=== PATIENT | female | born 1955 | race American Indian/Alaskan Native ===

== ENCOUNTER 2019-09-13 13:39 | Emergency (ER) | payer SELFPAY ==
--- NOTE | 2019-09-13 14:34 | Cat Scan Report ---
CT HEAD WITHOUT CONTRAST INDICATION / CLINICAL INFORMATION: neuro deficits <6hrs or sx present upon awakening. TECHNIQUE: All CT scans at this location are performed using CT dose reduction for ALARA by means of automated e xposure control. COMPARISON: None available. FINDINGS: HEMORRHAGE: No evidence of intracranial hemorrhage or extra-axial fluid collection. EXTRA-AXIAL SPACES: Cortical sulci, sylvian fissures and basilar cisterns have an unremarkable appear ance. VENTRICULAR SYSTEM: The ventricular system is of normal size and configuration. CEREBRAL PARENCHYMA: Fairly extensive periventricular, deep white matter and subcortical white matter hypodensities noted consistent with advanced microvascular ischemic change greater than expected for age 64 years. Are there risk factors such as hypertension, diabetes, cigarette smoking or renal fail ure A well-circumscribed area of decreased brain parenchymal attenuation is observed in the anterior aspect of the right thalamus measuring about 11 mm in greatest dimension. This represents a small lashawn p infarction which could be subacute or chronic.. MIDLINE SHIFT OR HERNIATION: There is no mass effect. CEREBELLUM / BRAINSTEM: Brainstem and cerebellum have an unremarkable appearance. INTRACRANIAL VESSELS: Calcified atherosclerotic plaque is demonstrated along the course of the cavern ous segments of both internal carotid arteries. Similar findings are seen at the distal vertebral art eries. ORBITS: Operative changes are seen at the left globe. The orbits are incompletely evaluated on this s tudy. SOFT TISSUES of HEAD: No significant abnormality. CALVARIUM: Evaluation of bone windows reveals no abnormalities. PARANASAL SINUSES / MASTOID AIR CELLS: Inflammatory disease is present in the right frontal sinus, an terior and mid right ethmoid air cells and visualized portions of the right maxillary sinus. These fi ndings may indicate sinusitis secondary to air passageways obstruction of the right OM U. Left-sided paranasal sinuses, sphenoid sinuses and mastoid air cells are normally pneumatized. ADDITIONAL FINDINGS: None. IMPRESSION: 1. Prominent periventricular and deep white matter low-density likely secondary to advanced microvasc ular ischemic change. 2. Age-indeterminate (subacute to chronic) small deep infarction right thalamus. "Stroke protocol" Notification: I called report of this study to Dr. Juárez of the emergency department at about 1326 Ce ntral standard time. Signer Name: Lincoln Aragon MD Signed: 09/13/2019 2:30 PM Workstation Name: [id number]
--- NOTE | 2019-09-13 14:37 | Emergency Department Report ---
HPI - General Chief Complaint: Neuro Symptoms/Deficit Time Seen by Provider: 09/13/19 14:01 - HPI HPI: 64-year-old female presents to the emergency department as a code stroke. The patient does not speak much Korean but the daughter is currently at bedside and translating for us. The patient started exhibiting some slurred speech and confusion yesterday. She also had some episodes of diarrhea including 1 in which she soiled herself. However the patient just went to sleep assuming that she would improve. This morning the daughter was called saying that the patient was still having altered speech and "she does not appear to be herself." The pa cy also complained of some midsternal chest pain that has since resolved. She continues to have episodes of diarrhea including another in which she soiled herself. No fever, nausea, vomiting, rash, abdominal pain. The patient does have some generalized weakness but there has been no complaints of any facial droop or lateralizing or focal weakness or deficits. She has a past medical history of diabetes, hypertension and had some recent glaucoma surgery. ED Past Medical Hx - Past Medical History Previous Medical History?: Yes Hx Hypertension: Yes Hx Diabetes: Yes - Surgical History Past Surgical History?: Yes Additional Surgical History: Glaucoma (Left eye) - Social History Smoking Status: Never Smoker Substance Use Type: Alcohol - Medications Home Medications: Home Medications Medication Instructions Recorded Confirmed Last Taken Type Atorvastatin (Nf) [Lipitor (Nf)] 10 mg PO QDAY 09/13/19 09/13/19 Unknown History Atorvastatin (Nf) [Lipitor (Nf)] 10 mg PO QHS 09/13/19 09/13/19 Unknown History Calcitrate + Vit D Caplet QDAY 09/13/19 Unknown History Metformin HCl [metFORMIN] 500 mg PO BID 09/13/19 09/13/19 Unknown History Sitagliptin Phosphate [Januvia] 100 mg PO QDAY 09/13/19 09/13/19 Unknown History amLODIPine [Norvasc] 10 mg PO DAILY 09/13/19 09/13/19 Unknown History lisinopriL [Zestril TAB] 10 mg PO QDAY 09/13/19 09/13/19 Unknown History ED Review of Systems ROS: Stated complaint: CHEST PAIN/POSS STROKE Other details as noted in HPI Comment: All other systems reviewed and negative Constitutional: weakness. denies: fever Eyes: denies: eye pain, vision change ENT: denies: ear pain, throat pain Respiratory: denies: cough, shortness of breath Cardiovascular: chest pain (resolved). denies: palpitations Gastrointestinal: diarrhea. denies: abdominal pain, vomiting Genitourinary: denies: dysuria, discharge Musculoskeletal: denies: back pain, joint swelling Skin: denies: rash, lesions Neurological: weakness. denies: headache, numbness Physical Exam - Physical Exam Vital Signs: Vital Signs 09/13/19 09/13/19 13:41 14:29 Temperature 98.4 F 98.4 F Pulse Rate 104 H 95 H Respiratory 18 18 Rate Blood Pressure 160/84 Blood Pressure 172/82 [Right] O2 Sat by Pulse 99 100 Oximetry ED Course Vital Signs 09/13/19 09/13/19 13:41 14:29 Temperature 98.4 F 98.4 F Pulse Rate 104 H 95 H Respiratory 18 18 Rate Blood Pressure 160/84 Blood Pressure 172/82 [Right] O2 Sat by Pulse 99 100 Oximetry - Consultations Consultation #1: Just after the patient had a CT scan of the head without contrast completed she was seen by the telemedicine neurologist. He agrees with the patient does not appear to be a TPA candidate. At first he recommended a CT angiography of the head and neck. However, the patient has some renal insufficiency and he agrees that the patient does not have a likely large vessel occlusion and that the CT angiography can be skipped but he recommends admission for MRI/MRA. 09/13/19 18:40 ED Medical Decision Making - Lab Data Result diagrams: 09/13/19 14:49 09/13/19 14:49 - EKG Data -: EKG Interpreted by Me EKG shows normal: sinus rhythm, axis (Left axis deviation), intervals (Prolonged QTC), QRS complexes (LVH, intraventricular conduction delay), ST-T waves (There is some ST elevation to the lateral leads secondary to the LVH) Rate: normal - EKG Data When compared to previous EKG there are: previous EKG unavailable Interpretation: other (Sinus rhythm, left axis deviation, prolonged QTC, LVH, nonspecific intraventricular conduction delay, there is some ST elevation to the lateral leads secondary to LVH) - Radiology Data Radiology results: report reviewed, image reviewed interpreted by me: Chest x-ray does not show any acute process. There are no pleural effusions, obvious pneumonia and there is no pneumothorax. Abdominal x-ray shows nonspecific nonobstructive bowel gas CT HEAD WITHOUT CONTRAST INDICATION / CLINICAL INFORMATION: neuro deficits <6hrs or sx present upon awakening. TECHNIQUE: All CT scans at this location are performed using CT dose reduction for ALARA by means of automated exposure control. COMPARISON: None available. FINDINGS: HEMORRHAGE: No evidence of intracranial hemorrhage or extra-axial fluid collection. EXTRA-AXIAL SPACES: Cortical sulci, sylvian fissures and basilar cisterns have an unremarkable appearance. VENTRICULAR SYSTEM: The ventricular system is of normal size and configuration. CEREBRAL PARENCHYMA: Fairly extensive periventricular, deep white matter and subcortical white matter hypodensities noted consistent with advanced microvascular ischemic change greater than expected for age 64 years. Are there risk factors such as hypertension, diabetes, cigarette smoking or renal failure A well-circumscribed area of decreased brain parenchymal attenuation is observed in the anterior aspect of the right thalamus measuring about 11 mm in greatest dimension. This represents a small deep infarction which could be subacute or chronic.. MIDLINE SHIFT OR HERNIATION: There is no mass effect. CEREBELLUM / BRAINSTEM: Brainstem and cerebellum have an unremarkable appearance. INTRACRANIAL VESSELS: Calcified atherosclerotic plaque is demonstrated along the course of the cavernous segments of both internal carotid arteries. Similar findings are seen at the distal vertebral arteries. ORBITS: Operative changes are seen at the left globe. The orbits are incompletely evaluated on this study. SOFT TISSUES of HEAD: No significant abnormality. CALVARIUM: Evaluation of bone windows reveals no abnormalities. PARANASAL SINUSES / MASTOID AIR CELLS: Inflammatory disease is present in the right frontal sinus, anterior and mid right ethmoid air cells and visualized portions of the right maxillary sinus. These findings may indicate sinusitis secondary to air passageways obstruction of the right OM U. Left-sided paranasal sinuses, sphenoid sinuses and mastoid air cells are normally pneumatized. ADDITIONAL FINDINGS: None. IMPRESSION: 1. Prominent periventricular and deep white matter low-density likely secondary to advanced microvascular ischemic change. 2. Age- indeterminate (subacute to chronic) small deep infarction right thalamus. - Medical Decision Making This patient presents with a 24-hour period of some altered speech, confusion, generalized weakness. She presented as a code stroke. CT scan of the head showed what appears to be a subacute infarct but no acute infarct, bleed, or any other acute process. Patient's labs have been mostly unremarkable except for renal insufficiency with a GFR of 38. Patient was seen by the telemedicine neurologist who agrees that she is not a TPA candidate but does recommend admission for MRI/MRA and further stroke work-up. Patient was given a dose of hydralazine for her blood pressure and an aspirin after the CT scan results. This patient has been presented to the admitting hospitalist, Dr. Mckay, for either admission or further disposition. - Differential Diagnosis CVA, TIA, dysrhythmia, hypoglycemia Critical Care Time: No Critical care attestation.: If time is entered above; I have spent that time in minutes in the direct care of this critically ill patient, excluding procedure time. ED Disposition Clinical Impression: Stroke-like symptoms, GOPAL (acute kidney injury) Hypertension Qualifiers: Hypertension type: essential hypertension Qualified Code(s): I10 - Essential (primary) hypertension Disposition: -09 OP ADMIT IP TO THIS HOSP Is pt being admited?: Yes Condition: Fair Instructions: Hypertension (ED) Time of Disposition: 18:42
[2019-09-13 15:06] LABS: Basophils # (Auto) 0.1 K/mm3 (0.0-0.1); Basophils % (Auto) 0.8 % (0.0-1.8); Eosinophils # (Auto) 0.1 K/mm3 (0.0-0.4); Eosinophils % (Auto) 1.1 % (0.0-4.3); Hematocrit 33.7 % (30.3-42.9); Hemoglobin 11.1 gm/dl (10.1-14.3); Lymphocytes # (Auto) 1.6 K/mm3 (1.2-5.4); Lymphocytes % (Auto) 21.8 % (13.4-35.0); Mean Corpuscular HGB Conc 33 % (30-34); Mean Corpuscular Volume 83 fl (79-97); Monocytes # (Auto) 0.7 K/mm3 (0.0-0.8); Monocytes % (Auto) 9.5 % (0.0-7.3); Platelet Count 356 K/mm3 (140-440); Red Blood Count 4.06 M/mm3 (3.65-5.03)
[2019-09-13 15:16] LABS: INR 1.05 (0.87-1.13)
[2019-09-13 15:17] LABS: Partial Thromboplastin Time 33.1 Sec. (24.2-36.6)
[2019-09-13 15:25] LABS: BUN/Creatinine Ratio 12; Blood Urea Nitrogen 17 mg/dL (7-17); Hemolysis Index 4
[2019-09-13 15:29] LABS: Alanine Aminotransferase 9 units/L (7-56); Albumin 3.5 g/dL (3.9-5)
--- NOTE | 2019-09-13 15:33 | XRay Report ---
Complete abdominal series. HISTORY: Chest pain. Diarrhea. Chest one view: Heart size is mildly enlarged. Negative for edema, effusion or infiltrate. Two-view abdomen: Gas is scattered throughout the abdomen in a nonobstructive fashion. Negative for f ree air or suspicious calcification. Signer Name: Jose Elliott MD Signed: 09/13/2019 3:28 PM Workstation Name: [id number]
[2019-09-13 15:39] LABS: Bilirubin,Direct < 0.2 mg/dL (0-0.2)
[2019-09-13] MEDS ORDERED: ASPIRIN 81 MG TAB CHEW PO ONE (15:56)
[2019-09-13] MEDS ORDERED: hydrALAZINE 20 MG/1 ML INJ IV ONE (15:56)
[2019-09-13 16:29] VITALS: BP 148/82
[2019-09-13] MEDS ORDERED: SODIUM CHLORIDE 0.9% 1000 ML 1,000 ML IV ONE (17:30)
[2019-09-13 18:27] LABS: Chol/HDL Ratio 4.17 %
[2019-09-13 18:37] LABS: Free T4 (Free Thyroxine) 1.14 ng/dL (0.76-1.46)
--- NOTE | 2019-09-13 18:54 | Event Note ---
64-year-old female with HTN, DM, malnutrition presents to ED for evaluation. A code stroke was called. Patient initiated on stroke protocol. Patient seen and evaluated in the ED. Patient does not exhibit any neurologic deficit. Upon further interview patient reports that she presents to [facility] for evaluation at the insistence of her daughter. Patient states that she "feels fine", but her daughter insisted that she come in and get checked out. Patient denies fever, chills, chest pain, palpitations, productive cough, unintentional weight loss, recent ill contacts. Patient denies focal neurologic deficit. Patient acknowledges decreased oral intake and generalized weakness. CT scan of the head is reviewed and does not reveal any acute findings. Patient found to have accelerated hypertension. Patient instructed to continue prehospital antihypertensive and antihyperglycemic medication. Patient also instructed to take aspirin daily. Patient medically optimized and back to usual state of health. Patient does not meet admission criteria at this time. Patient subsequently discharged home and instructed to follow-up with primary care physician within 3 to 5 days, and to follow-up with neurology for further care and evaluation within 3 to 5 days. - General Limitations: No Limitations General appearance: alert, in no apparent distress - Head Head exam: Present: atraumatic, normocephalic - Eye Eye exam: Present: normal appearance - ENT ENT exam: Present: mucous membranes moist - Respiratory Respiratory exam: Present: normal lung sounds bilaterally. Absent: respiratory distress, wheezes, rales, rhonchi, stridor, chest wall tenderness, accessory muscle use, decreased breath sounds, prolonged expiratory - Cardiovascular Cardiovascular Exam: Present: regular rate, normal rhythm, normal heart sounds. Absent: systolic murmur, diastolic murmur, rubs, gallop - GI/Abdominal GI/Abdominal exam: Present: soft, normal bowel sounds. Absent: distended, tenderness, rebound, rigid - Back Exam Back exam: Present: normal inspection, full ROM, CVA tenderness (R) (mild), CVA tenderness (L) (mild). Absent: paraspinal tenderness, vertebral tenderness - Neurological Exam Neurological exam: Present: alert, oriented X3, CN II-XII intact, normal gait. Absent: motor sensory deficit - Psychiatric Psychiatric exam: Present: normal affect, normal mood - Skin Skin exam: Present: warm, dry, intact
== END 2019-09-13 21:36 | disposition admitted as inpatient to this hospital (09) ==
LOC: ED 13:39
DX: N17.9 Acute kidney failure, unspecified (principal); R07.9 Chest pain, unspecified; R47.81 Slurred speech; R41.0 Disorientation, unspecified; R19.7 Diarrhea, unspecified; R53.1 Weakness; I10 Essential (primary) hypertension; E11.9 Type 2 diabetes mellitus without complications; Z98.890 Other specified postprocedural states; Z79.899 Other long term (current) drug therapy
CPT/HCPCS: 36415; 70450; 74022; 80048; 80061; 80076; 82962; 84439; 84443; 84484; 85025; 85610; 85670; 85730; 87040; 93005; 93010; 96361; 96374; 99285; J0360

== ENCOUNTER 2020-01-08 22:03 | Observation (INO) | payer OTHER ==
[2020-01-08 23:07] LABS: Hematocrit 28.1 % (30.3-42.9); Hemoglobin 9.1 gm/dl (10.1-14.3); Mean Corpuscular HGB Conc 33 % (30-34); Mean Corpuscular Volume 83 fl (79-97); Platelet Count 263 K/mm3 (140-440); Red Blood Count 3.38 M/mm3 (3.65-5.03); Red Cell Distribution Width 16.1 % (13.2-15.2)
[2020-01-08 23:28] LABS: Albumin 3.5 g/dL (3.9-5); Calcium 8.6 mg/dL (8.4-10.2)
--- NOTE | 2020-01-09 01:03 | Emergency Department Report ---
ED General Adult HPI - General Chief complaint: Extremity Injury, Lower Stated complaint: SWELLING IN RT AND LEFT FEET Time Seen by Provider: 01/09/20 00:57 Source: family Mode of arrival: Wheelchair Limitations: No Limitations - History of Present Illness Initial comments: Patient is a 64-year-old female that presents emergency room with lower extremit y swelling. Patient states the pain is a 2 out of 10. Pain states is a pressure and fullness feeling. Patient states that the swelling is better with elevation and worse with the legs being bent or down. Patient states that her symptoms started today. Patient denies fever. Patient denies chills. Patient denies redness to her legs. Patient states she is compliant about having a clot in her legs. Patient states that the swelling is on both sides. Patient has a past medical history hypertension diabetes. Patient denies a past medical history of CHF. Patient states she is on amlodipine for blood pressure. -: Sudden Location: lower extremity Severity scale (0 -10): 2 Quality: aching Consistency: constant Improves with: rest, other (Elevation) Worsens with: movement Associated Symptoms: denies: confusion, chest pain, cough, diaphoresis, fever/chills, headaches, loss of appetite, malaise, nausea/vomiting, rash, seizure, shortness of breath, syncope, weakness Treatments Prior to Arrival: none - Related Data Home Medications Medication Instructions Recorded Confirmed Last Taken Atorvastatin (Nf) [Lipitor (Nf)] 10 mg PO QDAY 09/13/19 09/13/19 Unknown Atorvastatin (Nf) [Lipitor (Nf)] 10 mg PO QHS 09/13/19 09/13/19 Unknown Calcitrate + Vit D Caplet QDAY 09/13/19 Unknown Metformin HCl [metFORMIN] 500 mg PO BID 09/13/19 09/13/19 Unknown Sitagliptin Phosphate [Januvia] 100 mg PO QDAY 09/13/19 09/13/19 Unknown amLODIPine [Norvasc] 10 mg PO DAILY 09/13/19 09/13/19 Unknown lisinopriL [Zestril TAB] 10 mg PO QDAY 09/13/19 09/13/19 Unknown Previous Rx's Medication Instructions Recorded Last Taken Type Aspirin [Aspirin BABY CHEW TAB] 81 mg PO QDAY #30 tab.chew 09/13/19 Unknown Rx Allergies Allergy/AdvReac Type Severity Reaction Status Date / Time No Known Allergies Allergy Verified 09/13/19 13:45 ED Review of Systems ROS: Stated complaint: SWELLING IN RT AND LEFT FEET Other details as noted in HPI Constitutional: denies: chills, fever Eyes: denies: eye pain, eye discharge, vision change ENT: denies: ear pain, throat pain Respiratory: denies: cough, shortness of breath, wheezing Cardiovascular: edema. denies: chest pain, palpitations Endocrine: no symptoms reported Gastrointestinal: denies: abdominal pain, nausea, diarrhea Genitourinary: denies: urgency, dysuria, discharge Musculoskeletal: denies: back pain, joint swelling, arthralgia Skin: denies: rash, lesions Neurological: denies: headache, weakness, paresthesias Psychiatric: denies: anxiety, depression Hematological/Lymphatic: denies: easy bleeding, easy bruising ED Past Medical Hx - Past Medical History Previous Medical History?: Yes Hx Hypertension: Yes Hx CVA: Yes (TPA GIVEN 09/2019- AT [facility]) Hx Diabetes: Yes Additional medical history: CHEMO IV FOR VASCULITIS - Surgical History Past Surgical History?: Yes Additional Surgical History: Glaucoma (Left eye) - Social History Smoking Status: Never Smoker Substance Use Type: Alcohol - Medications Home Medications: Home Medications Medication Instructions Recorded Confirmed Last Taken Type Aspirin [Aspirin BABY CHEW TAB] 81 mg PO QDAY #30 tab.chew 09/13/19 Unknown Rx Atorvastatin (Nf) [Lipitor (Nf)] 10 mg PO QDAY 09/13/19 09/13/19 Unknown History Atorvastatin (Nf) [Lipitor (Nf)] 10 mg PO QHS 09/13/19 09/13/19 Unknown History Calcitrate + Vit D Caplet QDAY 09/13/19 Unknown History Metformin HCl [metFORMIN] 500 mg PO BID 09/13/19 09/13/19 Unknown History Sitagliptin Phosphate [Januvia] 100 mg PO QDAY 09/13/19 09/13/19 Unknown History amLODIPine [Norvasc] 10 mg PO DAILY 09/13/19 09/13/19 Unknown History lisinopriL [Zestril TAB] 10 mg PO QDAY 09/13/19 09/13/19 Unknown History ED Physical Exam - General Limitations: No Limitations General appearance: alert, in no apparent distress - Head Head exam: Present: atraumatic, normocephalic - Eye Eye exam: Present: normal appearance, PERRL Pupils: Present: normal accommodation - ENT ENT exam: Present: mucous membranes moist - Neck Neck exam: Present: normal inspection - Respiratory Respiratory exam: Present: normal lung sounds bilaterally. Absent: respiratory distress, wheezes, rales - Cardiovascular Cardiovascular Exam: Present: regular rate, normal rhythm. Absent: systolic murmur, diastolic murmur, rubs, gallop - GI/Abdominal GI/Abdominal exam: Present: soft, normal bowel sounds. Absent: distended, tenderness, guarding, rebound - Rectal Rectal exam: Present: deferred - Extremities Exam Extremities exam: Present: full ROM, tenderness, normal capillary refill, pedal edema, calf tenderness - Back Exam Back exam: Present: normal inspection - Neurological Exam Neurological exam: Present: alert, oriented X3 - Psychiatric Psychiatric exam: Present: normal affect, normal mood - Skin Skin exam: Present: warm, dry, intact, normal color. Absent: rash ED Course Vital Signs 01/08/20 01/09/20 01/09/20 22:09 00:59 01:00 Temperature 98 F Pulse Rate 91 H 83 79 Respiratory 18 17 19 Rate Blood Pressure 166/84 O2 Sat by Pulse 100 Oximetry 01/09/20 01/09/20 01/09/20 01:15 01:30 01:45 Temperature Pulse Rate 76 76 76 Respiratory 15 18 16 Rate Blood Pressure 155/74 155/74 175/83 O2 Sat by Pulse 100 100 100 Oximetry 01/09/20 01/09/20 01/09/20 02:00 02:15 02:30 Temperature Pulse Rate 74 74 72 Respiratory 17 16 15 Rate Blood Pressure 165/81 167/77 164/76 O2 Sat by Pulse 100 100 99 Oximetry 01/09/20 01/09/20 01/09/20 02:45 03:00 03:15 Temperature Pulse Rate 74 75 78 Respiratory 17 14 18 Rate Blood Pressure 164/82 160/72 179/83 O2 Sat by Pulse 99 99 100 Oximetry 01/09/20 01/09/20 01/09/20 03:30 03:46 04:00 Temperature Pulse Rate 77 79 77 Respiratory 18 17 16 Rate Blood Pressure 179/83 173/87 179/83 O2 Sat by Pulse 100 99 99 Oximetry 01/09/20 01/09/20 01/09/20 04:15 04:44 04:45 Temperature Pulse Rate 79 79 Respiratory 15 20 Rate Blood Pressure 182/83 182/83 169/77 O2 Sat by Pulse 99 99 98 Oximetry - Reevaluation(s) Reevaluation #1: Ultrasound of the lower extremities done and the tech states is negative for DVT. 01/09/20 003:50 Reevaluation #2: I discussed all results with patient. I discussed plan of care with patient. Patient agrees with plan of care and admission. Patient to be admitted to the hospitalist service. 01/09/20 04:05 - Consultations Consultation #1: Hospitalist consulted for admission. Hospitalist to admit patient. 01/09/20 04:05 ED Medical Decision Making - Lab Data Result diagrams: 01/08/20 22:52 01/08/20 22:52 - EKG Data -: EKG Interpreted by Me EKG shows normal: sinus rhythm, ST-T waves Rate: normal - EKG Data Interpretation: other (Wide QRS, LVH. [place] deviation) - Radiology Data Radiology results: report reviewed, image reviewed CHEST 1 VIEW 01/09/2020 1:08 AM INDICATION / CLINICAL INFORMATION: MAIN. COMPARISON: None available. FINDINGS: SUPPORT DEVICES: None. HEART / MEDIASTINUM: No significant abnormality. LUNGS / PLEURA: No significant pulmonary or pleural abnormality. No pneumothorax. ADDITIONAL FINDINGS: No significant additional findings. IMPRESSION: 1. No acute findings. - Medical Decision Making Patient is a 64-year-old female that presents emergency room with complaints of lower extremity edema that started today. Patient had an EKG done which is abnormal shows LVH and a widened QRS consistent with left bundle branch block. Patient's labs were done. Patient's labs were significant for CKD and elevated BNP. Patient's chest x-ray is negative. Patient had an ultrasound of the lower extremity which is negative for a DVT. Patient admitted to the hospitalist service. - Differential Diagnosis CHF, right-sided failure, edema, DVT Critical care attestation.: If time is entered above; I have spent that time in minutes in the direct care of this critically ill patient, excluding procedure time. ED Disposition Clinical Impression: Elevated brain natriuretic peptide (BNP) level, Swelling of lower extremity CKD (chronic kidney disease) Qualifiers: Chronic kidney disease stage: unspecified stage Qualified Code(s): N18.9 - Chronic kidney disease, unspecified Disposition: DC-09 OP ADMIT IP TO THIS HOSP Is pt being admited?: Yes Does the pt Need Aspirin: No Condition: Serious Time of Disposition: 04:07
--- NOTE | 2020-01-09 02:41 | XRay Report ---
CHEST 1 VIEW 01/09/2020 1:08 AM INDICATION / CLINICAL INFORMATION: MAIN. COMPARISON: None available. FINDINGS: SUPPORT DEVICES: None. HEART / MEDIASTINUM: No significant abnormality. LUNGS / PLEURA: No significant pulmonary or pleural abnormality. No pneumothorax. ADDITIONAL FINDINGS: No significant additional findings. IMPRESSION: 1. No acute findings. Signer Name: Franky Trevino MD Signed: 01/09/2020 2:37 AM Workstation Name: [id number]
[2020-01-09] MEDS ORDERED: ONDANSETRON 4 MG/2 ML INJ IV PRN (04:48)
[2020-01-09] MEDS ORDERED: ACETAMINOPHEN 325 MG TAB PO PRN (04:48)
[2020-01-09] MEDS ORDERED: DEXTROSE 50% IN WATER (25GM) 50 ML SYRINGE IV PRN (04:48)
[2020-01-09] MEDS ORDERED: MORPHINE 2 MG/1 ML INJ IV PRN (04:48)
[2020-01-09] MEDS ORDERED: MAGNESIUM HYDROXIDE (MOM) ORAL LIQD UDC PO PRN (04:48)
--- NOTE | 2020-01-09 04:59 | History and Physical Report ---
History of Present Illness Date of examination: 01/09/20 Date of admission: 01/09/2020 Chief complaint: Lateral lower extremity swelling History of present illness: 64-year-old female with known history of hypertension, CVA, and diabetes mellitus presents to the emergency room today complaining of bilateral lower extremity swelling. Swelling said to have been ongoing for some time but got worse over the past few days. She denies any lower extremity pain and denies any chest pain. She denies any shortness of breath, no nausea vomiting, no fever or chills, no headache or dizziness. Lower extremity swelling is said to get better upon elevation of lower extrem ities. She denies any history of CHF. She has been on amlodipine for blood pressure and has been compliant with her medications. Work-up in the emergency room today reveals elevated BNP. Ultrasound of the lower extremities were unremarkable and also chest x-ray was within normal limits. 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, glaucoma), other (GLAUCOMA,) Past Surgical History: Other Social history: no significant social history Family history: no significant family history Medications and Allergies Allergies Allergy/AdvReac Type Severity Reaction Status Date / Time No Known Allergies Allergy Verified 09/13/19 13:45 Home Medications Medication Instructions Recorded Confirmed Last Taken Type Aspirin [Aspirin BABY CHEW TAB] 81 mg PO QDAY #30 tab.chew 09/13/19 Unknown Rx Atorvastatin (Nf) [Lipitor (Nf)] 10 mg PO QDAY 09/13/19 09/13/19 Unknown History Atorvastatin (Nf) [Lipitor (Nf)] 10 mg PO QHS 09/13/19 09/13/19 Unknown History Calcitrate + Vit D Caplet QDAY 09/13/19 Unknown History Metformin HCl [metFORMIN] 500 mg PO BID 09/13/19 09/13/19 Unknown History Sitagliptin Phosphate [Januvia] 100 mg PO QDAY 09/13/19 09/13/19 Unknown History amLODIPine [Norvasc] 10 mg PO DAILY 09/13/19 09/13/19 Unknown History lisinopriL [Zestril TAB] 10 mg PO QDAY 09/13/19 09/13/19 Unknown History Active Meds: Active Medications Acetaminophen (Tylenol) 650 mg PO Q4H PRN PRN Reason: Pain MILD(1-3)/Fever >100.5/BECKETT Dextrose (D50w (25gm) Syringe) 50 ml IV Q30MIN PRN; Protocol PRN Reason: Hypoglycemia Dextrose (D50w (25gm) Syringe) 50 ml IV Q30MIN PRN; Protocol PRN Reason: Hypoglycemia Furosemide (Lasix) 40 mg IV BID@0600,1800 PI[facility]ER Insulin Human Lispro (Humalog) 0 unit SUB-Q ACHS [facility]; Protocol Magnesium Hydroxide (Milk Of Magnesia) 30 ml PO Q4H PRN PRN Reason: Constipation Morphine Sulfate (Morphine) 2 mg IV Q4H PRN PRN Reason: Pain, Moderate (4-6) Ondansetron HCl (Zofran) 4 mg IV Q8H PRN PRN Reason: Nausea And Vomiting Sodium Chloride (Sodium Chloride Flush Syringe 10 Ml) 10 ml IV BID PIEETR Sodium Chloride (Sodium Chloride Flush Syringe 10 Ml) 10 ml IV PRN PRN PRN Reason: LINE FLUSH Review of Systems Constitutional: no fever, no chills Ears, nose, mouth and throat: no nasal congestion, no sore throat Cardiovascular: no chest pain, no syncope Respiratory: no cough, no shortness of breath Gastrointestinal: no abdominal pain, no nausea, no vomiting, no diarrhea Genitourinary Female: no flank pain, no dysuria, no hematuria Musculoskeletal: no neck pain, no low back pain Integumentary: no rash, no pruritis Neurological: no headaches, no confusion Psychiatric: no anxiety, no depression Exam - Constitutional Vitals: Temp Pulse Resp BP Pulse Ox 98 F 91 H 18 166/84 100 01/08/20 22:09 01/08/20 22:09 01/08/20 22:09 01/08/20 22:09 01/08/20 22:09 General appearance: Present: no acute distress, well-nourished - EENT Eyes: Present: PERRL, EOM intact. Absent: scleral icterus ENT: hearing intact, clear oral mucosa, dentition normal - Neck Neck: Present: supple, normal ROM - Respiratory Respiratory effort: normal Respiratory: bilateral: CTA - Cardiovascular Rhythm: regular Heart Sounds: Present: S1 & S2. Absent: systolic murmur, diastolic murmur - Extremities Extremities: no ischemia, Full ROM Extremity abnormal: edema (3+ bilateral lower extremity edema) Peripheral Pulses: within normal limits - Abdominal General gastrointestinal: Present: soft, non-tender, non-distended, normal bowel sounds - Integumentary Integumentary: Present: clear, warm, dry. Absent: jaundice, rash - Musculoskeletal Musculoskeletal: strength equal bilaterally - Psychiatric Psychiatric: appropriate mood/affect, intact judgment & insight, cooperative - Neurologic Neurologic: CNII-XII intact, no focal deficits, moves all extremities Results - Labs CBC & Chem 7: 01/08/20 22:52 01/08/20 22:52 Labs: Abnormal lab results 01/08/20 01/08/20 Range/Units 22:52 22:52 RBC 3.38 L (3.65-5.03) M/mm3 Hgb 9.1 L (10.1-14.3) gm/dl Hct 28.1 L (30.3-42.9) % MCH 27 L (28-32) pg RDW 16.1 H (13.2-15.2) % BUN 45 H (7-17) mg/dL Creatinine 1.4 H (0.7-1.2) mg/dL Glucose 278 H (65-100) mg/dL AST 47 H (5-40) units/L ALT 70 H (7-56) units/L Alkaline Phosphatase 194 H (35-129) units/L NT-Pro-B Natriuret Pep 1730 H (0-900) pg/mL Albumin 3.5 L (3.9-5) g/dL Assessment and Plan - Patient Problems (1) Swelling of lower extremity Current Visit: Yes Status: Acute Plan to address problem: Possibly dependent edema. Patient admits not ambulating well lately. Will however rule out new onset CHF. Patient placed on diuretics. Will monitor input and output and also monitor daily weight. Patient will be scheduled for echocardiogram (2) Elevated brain natriuretic peptide (BNP) level Current Visit: Yes Status: Acute Plan to address problem: We will work patient up for possible new onset CHF (3) CKD (chronic kidney disease) Current Visit: Yes Status: Acute Qualifiers: Chronic kidney disease stage: unspecified stage Qualified Code(s): N18.9 - Chronic kidney disease, unspecified Plan to address problem: We will monitor BUN and creatinine. (4) DVT prophylaxis Current Visit: Yes Status: Acute Plan to address problem: Patient placed on subcutaneous heparin. (5) Full code status Current Visit: Yes Status: Acute
--- NOTE | 2020-01-09 05:04 | Vascular Lab Report ---
DUPLEX DOPPLER LOWER EXTREMITY VEINS, BILATERAL INDICATION / CLINICAL INFORMATION: edema. TECHNIQUE: Duplex doppler imaging was performed through the veins of both lower extremities using venous chantel maura and other maneuvers. COMPARISON: None available. FINDINGS: Right Common Femoral vein: Negative. Right Femoral vein: Negative. Right Popliteal vein: Negative. Right Calf veins: Negative. Left Common Femoral vein: Negative. Left Femoral vein: Negative. Left Popliteal vein: Negative. Left Calf veins: Negative. Additional findings: Mild left leg subcutaneous edema IMPRESSION: 1. No sonographic evidence for DVT in either lower extremity. Signer Name: Franky Trevino MD Signed: 01/09/2020 5:00 AM Workstation Name: [email or web address]
[2020-01-09] MEDS ORDERED: FUROSEMIDE 40 MG/4 ML INJ IV SCH (06:00)
[2020-01-09] MEDS ORDERED: FUROSEMIDE 40 MG/4 ML INJ ONE (08:26)
[2020-01-09] MEDS: INSULIN LISPRO 100 UNIT/ML SUB-Q SCH ×4 (09:06→23:00)
--- NOTE | 2020-01-09 11:46 | Consultation ---
History of Present Illness Consult date: 01/09/20 Consult reason: congestive heart failure History of present illness: 64-year old woman who presented with lower extremity edema. Patient denies u nusual shortness of breath, chest pain and palpitations. Patient has a history of CVA with no residual deficits, hypertension and diabetes. There is no reported cardiac history. A chest x-ray reports no acute abnormalities. Lower extremity doppler showed no evidence of DVT. An ECG is sinus rhythm with LVH. A cardiac consultation has been requested for CHF evaluation. 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, glaucoma), other (GLAUCOMA,) Past Surgical History: Other Social history: no significant social history Family history: no significant family history Medications and Allergies Allergies Allergy/AdvReac Type Severity Reaction Status Date / Time No Known Allergies Allergy Verified 09/13/19 13:45 Home Medications Medication Instructions Recorded Confirmed Last Taken Type Aspirin [Aspirin BABY CHEW TAB] 81 mg PO QDAY #30 tab.chew 09/13/19 Unknown Rx Atorvastatin (Nf) [Lipitor (Nf)] 10 mg PO QDAY 09/13/19 09/13/19 Unknown History Atorvastatin (Nf) [Lipitor (Nf)] 10 mg PO QHS 09/13/19 09/13/19 Unknown History Calcitrate + Vit D Caplet QDAY 09/13/19 Unknown History Metformin HCl [metFORMIN] 500 mg PO BID 09/13/19 09/13/19 Unknown History Sitagliptin Phosphate [Januvia] 100 mg PO QDAY 09/13/19 09/13/19 Unknown History amLODIPine [Norvasc] 10 mg PO DAILY 09/13/19 09/13/19 Unknown History lisinopriL [Zestril TAB] 10 mg PO QDAY 09/13/19 09/13/19 Unknown History Active Meds: Active Medications Acetaminophen (Tylenol) 650 mg PO Q4H PRN PRN Reason: Pain MILD(1-3)/Fever >100.5/BECKETT Dextrose (D50w (25gm) Syringe) 0 ml IV Q30MIN PRN; Protocol PRN Reason: Hypoglycemia Furosemide (Lasix) 40 mg IV BID@0600,1800 PIETER Last Admin: 01/09/20 08:25 Dose: 40 mg Documented by: Heparin Sodium (Porcine) (Heparin) 5,000 unit SUB-Q Q8HR [facility] Insulin Human Lispro (Humalog) 0 unit SUB-Q ACHS [facility]; Protocol Last Admin: 01/09/20 09:06 Dose: 3 unit Documented by: Magnesium Hydroxide (Milk Of Magnesia) 30 ml PO Q4H PRN PRN Reason: Constipation Morphine Sulfate (Morphine) 2 mg IV Q4H PRN PRN Reason: Pain, Moderate (4-6) Ondansetron HCl (Zofran) 4 mg IV Q8H PRN PRN Reason: Nausea And Vomiting Sodium Chloride (Sodium Chloride Flush Syringe 10 Ml) 10 ml IV BID [facility] Last Admin: 01/09/20 09:07 Dose: 10 ml Documented by: Sodium Chloride (Sodium Chloride Flush Syringe 10 Ml) 10 ml IV PRN PRN PRN Reason: LINE FLUSH Physical Examination Vital Signs Temp Pulse Resp BP Pulse Ox 98 F 91 H 18 166/84 100 01/08/20 22:09 01/08/20 22:09 01/08/20 22:09 01/08/20 22:09 01/08/20 22:09 General appearance: no acute distress HEENT: Positive: PERRL Neck: Positive: trachea midline Cardiac: Positive: Reg Rate and Rhythm Lungs: Positive: Decreased Breath Sounds Neuro: Positive: Grossly Intact Extremities: Present: +2 Edema Results 01/08/20 22:52 01/08/20 22:52 Cardiac Enzymes 01/08/20 Range/Units 22:52 AST 47 H (5-40) units/L CBC 01/08/20 Range/Units 22:52 WBC 7.4 (4.5-11.0) K/mm3 RBC 3.38 L (3.65-5.03) M/mm3 Hgb 9.1 L (10.1-14.3) gm/dl Hct 28.1 L (30.3-42.9) % Plt Count 263 (140-440) K/mm3 Comprehensive Metabolic Panel 01/08/20 Range/Units 22:52 Sodium 140 (137-145) mmol/L Potassium 4.5 (3.6-5.0) mmol/L Chloride 103.0 (98-107) mmol/L Carbon Dioxide 23 (22-30) mmol/L BUN 45 H (7-17) mg/dL Creatinine 1.4 H (0.7-1.2) mg/dL Glucose 278 H (65-100) mg/dL Calcium 8.6 (8.4-10.2) mg/dL AST 47 H (5-40) units/L ALT 70 H (7-56) units/L Alkaline Phosphatase 194 H (35-129) units/L Total Protein 6.3 (6.3-8.2) g/dL Albumin 3.5 L (3.9-5) g/dL Assessment and Plan Lower extremity edema LE doppler -no evidence of DVT Prior CVA Hypertension Diabetes We will obtain an echocardiogram for LVEF assessment.
[2020-01-09] MEDS: FUROSEMIDE 40 MG TAB PO SCH (12:49)
[2020-01-09] MEDS: ASPIRIN EC 81 MG TAB PO SCH (12:50)
[2020-01-09] MEDS: VALSARTAN 40 MG TAB PO SCH ×2 (12:50→22:51)
[2020-01-09] MEDS: HEPARIN 5,000 UNIT/1 ML VIAL SUB-Q SCH ×3 (12:51→22:52)
--- NOTE | 2020-01-09 18:07 | Progress Note ---
Subjective Date of service: 01/09/20 Interval history: 64-year old woman who presented with lower extremity edema. Patient denies unusual shortness of breath, chest pain and palpitations. Patient has a history of CVA with no residual deficits, hypertension and diabetes. There is no reported cardiac history. A chest x-ray reports no acute abnormalities. Lower extremity doppler showed no evidence of DVT. An ECG is sinus rhythm with LVH. Patient complains of increasing leg edema for the past 1 week She denies any chest pain or shortness of breath She denies any leg pain, prolonged immobility, fever, chills She denies any nausea or abdominal pain or dysuria General appearance: Present: no acute distress, well-nourished - EENT Eyes: Present: PERRL, EOM intact. Absent: scleral icterus ENT: hearing intact, clear oral mucosa, dentition normal - Neck Neck: Present: supple, normal ROM - Respiratory Respiratory effort: normal Respiratory: bilateral: CTA - Cardiovascular Rhythm: regular Heart Sounds: Present: S1 & S2. Absent: systolic murmur, diastolic murmur - Extremities Extremities: no ischemia, Full ROM Extremity abnormal: edema (3+ bilateral lower extremity edema) Peripheral Pulses: within normal limits - Abdominal General gastrointestinal: Present: soft, non-tender, non-distended, normal bowel sounds - Integumentary Integumentary: Present: clear, warm, dry. Absent: jaundice, rash - Musculoskeletal Musculoskeletal: strength equal bilaterally - Psychiatric Psychiatric: appropriate mood/affect, intact judgment & insight, cooperative - Neurologic Neurologic: CNII-XII intact, no focal deficits, moves all extremities Assessment and plan Bilateral leg edema Cardiology note reviewed and appreciated Continue diuretic Venous Doppler was negative for DVT Elevated P BNP Echocardiogram results reviewed EF greater than 55% Patient is scheduled for stress thallium in a.m. Type 2 diabetes Check A1c Initiate insulin sliding scale coverage Hypertension Continue valsartan Normocytic anemia No overt bleed Objective - Constitutional Vitals: Vital Signs - 12hr 01/09/20 01/09/20 01/09/20 06:15 06:30 06:40 Pulse Rate 74 78 76 Respiratory 17 12 11 L Rate Blood Pressure 161/70 161/75 161/75 O2 Sat by Pulse 99 99 97 Oximetry 01/09/20 01/09/20 01/09/20 06:50 07:00 07:10 Pulse Rate 78 77 77 Respiratory 10 L 12 12 Rate Blood Pressure 162/72 164/75 164/75 O2 Sat by Pulse 98 98 97 Oximetry 01/09/20 01/09/20 01/09/20 07:20 07:30 07:40 Pulse Rate 76 76 76 Respiratory 12 12 12 Rate Blood Pressure 162/72 162/72 163/74 O2 Sat by Pulse 97 97 96 Oximetry 01/09/20 01/09/20 01/09/20 07:50 08:00 08:10 Pulse Rate 77 77 78 Respiratory 13 15 15 Rate Blood Pressure 159/75 155/70 155/70 O2 Sat by Pulse 97 97 98 Oximetry 01/09/20 01/09/20 01/09/20 08:20 08:30 12:49 Pulse Rate 76 Respiratory 13 18 Rate Blood Pressure 157/71 157/71 174/74 O2 Sat by Pulse 98 Oximetry - Labs CBC & Chem 7: 01/08/20 22:52 01/08/20 22:52 Labs: Abnormal lab results 01/08/20 01/08/20 01/09/20 Range/Units 22:52 22:52 09:17 RBC 3.38 L (3.65-5.03) M/mm3 Hgb 9.1 L (10.1-14.3) gm/dl Hct 28.1 L (30.3-42.9) % MCH 27 L (28-32) pg RDW 16.1 H (13.2-15.2) % BUN 45 H (7-17) mg/dL Creatinine 1.4 H (0.7-1.2) mg/dL Glucose 278 H (65-100) mg/dL POC Glucose 228 H (70-105) AST 47 H (5-40) units/L ALT 70 H (7-56) units/L Alkaline Phosphatase 194 H (35-129) units/L NT-Pro-B Natriuret Pep 1730 H (0-900) pg/mL Albumin 3.5 L (3.9-5) g/dL
[2020-01-10 05:11] LABS: Basophils % (Auto) 0.5 % (0.0-1.8); Eosinophils # (Auto) 0.1 K/mm3 (0.0-0.4); Eosinophils % (Auto) 0.7 % (0.0-4.3); Hemoglobin 9.7 gm/dl (10.1-14.3); Lymphocytes # (Auto) 1.7 K/mm3 (1.2-5.4); Lymphocytes % (Auto) 20.7 % (13.4-35.0); Mean Corpuscular HGB Conc 32 % (30-34); Mean Corpuscular Volume 83 fl (79-97); Monocytes # (Auto) 0.9 K/mm3 (0.0-0.8); Monocytes % (Auto) 10.7 % (0.0-7.3); Platelet Count 250 K/mm3 (140-440)
[2020-01-10] MEDS ORDERED: hydrALAZINE 20 MG/1 ML INJ IV ONE (05:15)
[2020-01-10 05:51] LABS: INR 0.93 (0.87-1.13)
[2020-01-10] MEDS: HEPARIN 5,000 UNIT/1 ML VIAL SUB-Q SCH ×3 (07:19→22:20)
[2020-01-10] MEDS: INSULIN LISPRO 100 UNIT/ML SUB-Q SCH ×4 (08:00→22:21)
[2020-01-10] MEDS ORDERED: REGADENOSON 0.4 MG/5 ML INJ IV ONE ×2 (08:17→08:20)
[2020-01-10] MEDS: ASPIRIN EC 81 MG TAB PO SCH (11:46)
[2020-01-10] MEDS: VALSARTAN 40 MG TAB PO SCH ×2 (11:46→22:20)
[2020-01-10] MEDS: FUROSEMIDE 40 MG TAB PO SCH (11:48)
--- NOTE | 2020-01-10 13:53 | Treadmill Report ---
THALLIUM STRESS TEST LEFT VENTRICLE: Left ventricular chamber size is within normal limits. Perfusion study demonstrates a small basal anterior defect of mild intensity. On the resting study, there is minimal to no significant reversibility. Gated analysis demonstrates left ventricular systolic function at the lower limits of normal with ejection fraction calculated at 48%. CONCLUSION: Small basal anterior defect may likely represent breast attenuation artifact. Cannot exclude very mild reversibility in this segment. Recommend clinical correlation and echocardiographic reassessment of left ventricular systolic function. JOB# [id number] CA/NTS
[2020-01-10 14:16] LABS: Bacteria,Urine 2+ /HPF (Negative); Bilirubin,Urine NEG (Negative); Blood,Urine SM (Negative); Color,Urine Yellow (Yellow); Urobilinogen,Urine < 2.0 mg/dL (<2.0)
--- NOTE | 2020-01-10 14:35 | Progress Note ---
Assessment and Plan Lower extremity edema LE doppler -no evidence of DVT Prior CVA Hypertension Diabetes Echocardiogram: normal LVEF 55-60%. A pharmacologic stress test with thallium has been done today. Results are pending. Subjective Date of service: 01/10/20 Objective Vital Signs Temp Pulse Resp BP BP Pulse Ox 01/10/20 11:46 95 H 169/77 01/10/20 11:42 98.4 F 95 H 17 169/77 94 01/10/20 10:20 127/57 01/10/20 10:19 129/60 01/10/20 10:18 134/59 01/10/20 10:16 126/59 01/10/20 10:15 130/59 01/10/20 10:14 121/55 01/10/20 10:12 125/58 01/10/20 10:11 143/54 01/10/20 10:10 153/68 01/10/20 09:49 148/67 01/10/20 07:58 99.5 F 96 H 17 140/68 95 01/10/20 06:30 100.0 F H 93 H 18 133/65 100 01/10/20 05:38 103 H 184/89 01/10/20 05:00 103 H 01/10/20 03:55 101.4 F H 110 H 20 175/87 84 01/09/20 23:48 98.8 F 101 H 18 190/92 89 01/09/20 22:51 90 170/79 01/09/20 21:00 89 01/09/20 20:40 98.9 F 90 18 164/81 92 01/09/20 20:00 16 94 01/09/20 16:30 97.9 F 90 18 135/70 100 - Physical Examination HEENT: Positive: PERRL Neck: Positive: trachea midline Neuro: Positive: Grossly Intact Extremities: Present: +2 Edema - Labs and Meds Coagulation 01/10/20 Range/Units 04:41 PT 12.3 (12.2-14.9) Sec. INR 0.93 (0.87-1.13) CBC 01/10/20 Range/Units 04:41 WBC 8.2 (4.5-11.0) K/mm3 RBC 3.60 L (3.65-5.03) M/mm3 Hgb 9.7 L (10.1-14.3) gm/dl Hct 30.0 L (30.3-42.9) % Plt Count 250 (140-440) K/mm3 Lymph # 1.7 (1.2-5.4) K/mm3 [place] # 0.9 H (0.0-0.8) K/mm3 Eos # 0.1 (0.0-0.4) K/mm3 Baso # 0.0 (0.0-0.1) K/mm3 Comprehensive Metabolic Panel 01/10/20 Range/Units 04:41 Sodium 143 (137-145) mmol/L Potassium 3.9 (3.6-5.0) mmol/L Chloride 100.5 (98-107) mmol/L Carbon Dioxide 28 (22-30) mmol/L BUN 39 H (7-17) mg/dL Creatinine 1.2 (0.7-1.2) mg/dL Glucose 141 H (65-100) mg/dL Calcium 9.0 (8.4-10.2) mg/dL
--- NOTE | 2020-01-10 16:32 | Progress Note ---
Subjective Date of service: 01/10/20 Interval history: 64-year old woman who presented with lower extremity edema. Patient denies unusual shortness of breath, chest pain and palpitations. Patient has a history of CVA with no residual deficits, hypertension and diabetes. There is no reported cardiac history. A chest x-ray reports no acute abnormalities. Lower extremity doppler showed no evidence of DVT. An ECG is sinus rhythm with LVH. Patient complains of increasing leg edema for the past 1 week She denies any chest pain or shortness of breath She denies any leg pain, prolonged immobility, fever, chills She denies any nausea or abdominal pain or dysuria General appearance: Present: no acute distress, well-nourished - EENT Eyes: Present: PERRL, EOM intact. Absent: scleral icterus ENT: hearing intact, clear oral mucosa, dentition normal - Neck Neck: Present: supple, normal ROM - Respiratory Respiratory effort: normal Respiratory: bilateral: CTA - Cardiovascular Rhythm: regular Heart Sounds: Present: S1 & S2. Absent: systolic murmur, diastolic murmur - Extremities Extremities: no ischemia, Full ROM Extremity abnormal: edema (3+ bilateral lower extremity edema) Peripheral Pulses: within normal limits - Abdominal General gastrointestinal: Present: soft, non-tender, non-distended, normal bowel sounds - Integumentary Integumentary: Present: clear, warm, dry. Absent: jaundice, rash - Musculoskeletal Musculoskeletal: strength equal bilaterally - Psychiatric Psychiatric: appropriate mood/affect, intact judgment & insight, cooperative - Neurologic Neurologic: CNII-XII intact, no focal deficits, moves all extremities Assessment and plan Bilateral leg edema Cardiology note reviewed and appreciated Continue IV diuretic She has good urine output Venous Doppler was negative for DVT Elevated P BNP Echocardiogram results reviewed EF greater than 55% However per discussion with cardiology, inferior vena cava is dilated We will order liver ultrasound Status post stress thallium Results reviewed and discussed with Dr. Centeno Stress test is normal Type 2 diabetes Initiate insulin sliding scale coverage Hypertension Continue valsartan Normocytic anemia No overt bleed Likely discharge tomorrow Objective - Constitutional Vitals: Vital Signs - 12hr 01/10/20 01/10/20 01/10/20 05:00 05:38 06:30 Temperature 100.0 F H Pulse Rate 103 H 103 H 93 H Respiratory 18 Rate Blood Pressure 184/89 Blood Pressure 133/65 [Left] O2 Sat by Pulse 100 Oximetry 01/10/20 01/10/20 01/10/20 07:58 09:49 10:10 Temperature 99.5 F Pulse Rate 96 H Respiratory 17 Rate Blood Pressure 140/68 148/67 153/68 Blood Pressure [Left] O2 Sat by Pulse 95 Oximetry 01/10/20 01/10/20 01/10/20 10:11 10:12 10:14 Temperature Pulse Rate Respiratory Rate Blood Pressure 143/54 125/58 121/55 Blood Pressure [Left] O2 Sat by Pulse Oximetry 01/10/20 01/10/20 01/10/20 10:15 10:16 10:18 Temperature Pulse Rate Respiratory Rate Blood Pressure 130/59 126/59 134/59 Blood Pressure [Left] O2 Sat by Pulse Oximetry 01/10/20 01/10/20 01/10/20 10:19 10:20 11:42 Temperature 98.4 F Pulse Rate 95 H Respiratory 17 Rate Blood Pressure 129/60 127/57 169/77 Blood Pressure [Left] O2 Sat by Pulse 94 Oximetry 01/10/20 01/10/20 11:46 15:51 Temperature 99.4 F Pulse Rate 95 H 96 H Respiratory 17 Rate Blood Pressure 169/77 145/78 Blood Pressure [Left] O2 Sat by Pulse 91 Oximetry - Labs CBC & Chem 7: 01/10/20 04:41 01/10/20 04:41 Labs: Abnormal lab results 01/09/20 01/09/20 01/09/20 Range/Units 12:26 17:32 22:48 RBC (3.65-5.03) M/mm3 Hgb (10.1-14.3) gm/dl Hct (30.3-42.9) % MCH (28-32) pg RDW (13.2-15.2) % [place] % (Auto) (0.0-7.3) % [place] # (0.0-0.8) K/mm3 BUN (7-17) mg/dL Glucose (65-100) mg/dL POC Glucose 197 H 275 H 248 H (70-105) Urine WBC (Auto) (0.0-6.0) /HPF 01/10/20 01/10/20 01/10/20 Range/Units 00:42 04:41 04:41 RBC 3.60 L (3.65-5.03) M/mm3 Hgb 9.7 L (10.1-14.3) gm/dl Hct 30.0 L (30.3-42.9) % MCH 27 L (28-32) pg RDW 16.0 H (13.2-15.2) % [place] % (Auto) 10.7 H (0.0-7.3) % [place] # 0.9 H (0.0-0.8) K/mm3 BUN 39 H (7-17) mg/dL Glucose 141 H (65-100) mg/dL POC Glucose 193 H (70-105) Urine WBC (Auto) (0.0-6.0) /HPF 01/10/20 01/10/20 01/10/20 Range/Units 08:11 11:54 14:00 RBC (3.65-5.03) M/mm3 Hgb (10.1-14.3) gm/dl Hct (30.3-42.9) % MCH (28-32) pg RDW (13.2-15.2) % [place] % (Auto) (0.0-7.3) % [place] # (0.0-0.8) K/mm3 BUN (7-17) mg/dL Glucose (65-100) mg/dL POC Glucose 179 H 335 H (70-105) Urine WBC (Auto) 8.0 H (0.0-6.0) /HPF 01/10/20 Range/Units 16:16 RBC (3.65-5.03) M/mm3 Hgb (10.1-14.3) gm/dl Hct (30.3-42.9) % MCH (28-32) pg RDW (13.2-15.2) % [place] % (Auto) (0.0-7.3) % [place] # (0.0-0.8) K/mm3 BUN (7-17) mg/dL Glucose (65-100) mg/dL POC Glucose 271 H (70-105) Urine WBC (Auto) (0.0-6.0) /HPF
[2020-01-11] MEDS: HEPARIN 5,000 UNIT/1 ML VIAL SUB-Q SCH (05:29)
[2020-01-11 08:28] VITALS: BP 167/75
--- NOTE | 2020-01-11 10:02 | Ultrasound Report ---
ULTRASOUND ABDOMEN, LIMITED (RIGHT UPPER QUADRANT) INDICATION: Dilated inferior vena cava/ see additional notes. COMPARISON: None available. FINDINGS: Pancreas: Visualized portion shows no significant abnormality. Liver: Mildly enlarged measuring 18.7 cm in length. Gallbladder: Cholelithiasis Bile ducts: Normal. Common Bile Duct measures 5 mm. Free fluid: There is a small right pleural effusion. Additional Findings: There is trace amount of right perinephric fluid. The hepatic veins are prominent but patent. The inferior vena cava measures 2.4 cm in diameter. The I VC is patent. The right kidney measures 11.9 cm in length. There is increased echogenicity in the right kidney whic h can indicate medical renal disease. IMPRESSION: 1. There is cholelithiasis. 2. The hepatic veins and inferior vena cava are prominent in size but are patent. This is not specifi c can be seen with right heart failure. There is a small right pleural effusion. Signer Name: Amado Cotto MD Signed: 01/11/2020 9:57 AM Workstation Name: [id number]
--- NOTE | 2020-01-11 10:31 | Progress Note ---
Assessment and Plan 1. Lower extremity edema 2. Essential hypertension 3. Type 2 diabetes mellitus 4. History of prior CVA Echocardiogram shows normal left and right ventricular size and function. Left ventricular ejection fraction 55 to 60% Stress MPI shows small fixed anterior defect consistent with breast attenuation artifact Plan Cardiac cortes patient is stable further work-up as previously outlined as per PCP Subjective Date of service: 01/11/20 Interval history: No [id number] symptoms. Objective Vital Signs Temp Pulse Resp BP Pulse Ox 01/11/20 07:46 98.6 F 86 18 167/75 96 01/11/20 04:34 99.2 F 93 H 18 166/77 93 01/10/20 23:38 100.0 F H 93 H 20 156/75 97 01/10/20 20:39 99.0 F 99 H 18 152/63 98 01/10/20 20:15 99 H 01/10/20 15:51 99.4 F 96 H 17 145/78 91 01/10/20 11:46 95 H 169/77 01/10/20 11:42 98.4 F 95 H 17 169/77 94 - Physical Examination HEENT: Positive: PERRL Neck: Positive: trachea midline Cardiac: Positive: Regular Rate, S1/S2, PMI, Laterally Displaced Lungs: Positive: clear to auscultation, No Wheeze, Rales, Rhonchi Neuro: Positive: Grossly Intact Abdomen: Positive: Unremarkable, Active Bowel Sounds Extremities: Present: +2 Edema - EKG Sinus rhythms and dysrhythmias: sinus rhythm
[2020-01-11] MEDS: FUROSEMIDE 40 MG TAB PO SCH (11:00)
[2020-01-11] MEDS: ASPIRIN EC 81 MG TAB PO SCH (11:00)
[2020-01-11] MEDS: VALSARTAN 40 MG TAB PO SCH (11:00)
[2020-01-11 11:21] LABS: BUN/Creatinine Ratio 28; Blood Urea Nitrogen 28 mg/dL (7-17); Calcium 8.6 mg/dL (8.4-10.2); Hemolysis Index 3
--- NOTE | 2020-01-11 13:05 | Discharge Summary ---
Providers - Providers Date of Admission: 01/09/20 05:14 Date of discharge: 01/11/20 Attending physician: BE SIGALA 01/09/20 04:48 Consult to Physician [CONS] Routine Comment: Consulting Provider: JAMILA SIDDIQI Physician Instructions: Reason For Exam: New onset CHF 01/09/20 04:49 Consult to Dietitian/Nutrition [CONS] Routine Physician Instructions: Reason For Exam: Reason for Consult: Diet education [facility] Condition: Stable Pertinent studies: Nuclear medicine MPI stress test, echocardiogram, liver ultrasound Hospital course: Patient is alert and oriented and offers no specific complaints Her renal function is back to normal Continues to have leg edema but is improving Discussed the findings of all the blood work and stress test and echocardiogram and ultrasound results with patient's daughter Apparently patient is on insulin per her daughter but this was not shown in the home medication list Patient is medically stable for discharge She needs to follow-up with her primary care physician We will also refer her to GI due to mildly elevated LFTs and asymptomatic gallstones Assessment Bilateral leg edema Cardiology note reviewed and appreciated Continue Lasix upon discharge She has good urine output Venous Doppler was negative for DVT Elevated P BNP Echocardiogram results reviewed EF greater than 55% However per discussion with cardiology, inferior vena cava is dilated liver ultrasound results reviewed and discussed with patient's daughter Status post stress thallium Results reviewed and discussed with Dr. Centeno Stress test is normal Type 2 diabetes ? Poorly controlled Continue home medications Discussed with daughter and needs to be followed up by her PCP Hypertension Continue valsartan Normocytic anemia No overt bleed Disposition: DC- TO HOME OR SELFCARE Time spent for discharge: 38 min Core Measure Documentation - Palliative Care Palliative Care/ Comfort Measures: Not Applicable - Core Measures Any of the following diagnoses?: none Exam - Constitutional Vitals: Temp Pulse Resp BP Pulse Ox 98.6 F 86 18 167/75 96 01/11/20 07:46 01/11/20 07:46 01/11/20 07:46 01/11/20 07:46 01/11/20 07:46 General appearance: Present: no acute distress - EENT Eyes: Present: PERRL, EOM intact ENT: hearing intact, clear oral mucosa - Neck Neck: Present: supple, normal ROM - Respiratory Respiratory effort: normal Respiratory: bilateral: CTA - Cardiovascular Rhythm: regular Heart Sounds: Present: S1 & S2 - Extremities Extremity abnormal: edema - Abdominal General gastrointestinal: Present: soft, non-tender. Absent: hepatomegaly, splenomegaly Female genitourinary: Present: deferred - Rectal Rectal Exam: deferred - Integumentary Integumentary: Present: clear - Musculoskeletal Musculoskeletal: strength equal bilaterally - Psychiatric Psychiatric: intact judgment & insight - Neurologic Neurologic: no focal deficits Plan Activity: no restrictions, advance as tolerated Weight Bearing Status: Weight Bear as Tolerated Diet: regular, low fat, low cholesterol, low salt, diabetic Additional Instructions: Follow-up with GI in 2 to 3 weeks regarding her mildly elevated LFTs and gallstones and intrahepatic dilated veins Follow up with: [facility] [Primary Care Provider] - 3-5 Days MARCIA PENA MD [Staff Physician] - 14 Days Prescriptions: amLODIPine 5 mg PO DAILY #30 tab Furosemide [Lasix TAB] 40 mg PO QDAY #30 tablet Valsartan 80 mg PO BID #60 tablet
== END 2020-01-11 14:49 | disposition home or self-care (01) ==
LOC: ED 22:03 → 4A 01-09 05:14 → INTOOBSV 01-09 05:14
PROVIDERS: ADMIT Internal Medicine Geriatric Medicine; ATTEND Internal Medicine
DX: R60.0 Localized edema (principal); R79.89 Other specified abnormal findings of blood chemistry; I13.0 Hypertensive heart and chronic kidney disease with heart failure and stage 1 through stage 4 chronic kidney disease, or unspecified chronic kidney disease; E11.22 Type 2 diabetes mellitus with diabetic chronic kidney disease; I50.9 Heart failure, unspecified; N18.9 Chronic kidney disease, unspecified; D64.9 Anemia, unspecified; Z86.73 Personal history of transient ischemic attack (TIA), and cerebral infarction without residual deficits; Z92.21 Personal history of antineoplastic chemotherapy; Z86.79 Personal history of other diseases of the circulatory system; Z79.84 Long term (current) use of oral hypoglycemic drugs; Z79.82 Long term (current) use of aspirin; Z79.899 Other long term (current) drug therapy
CPT/HCPCS: 36415; 71045; 76705; 78452; 80048; 80053; 81001; 82962; 83880; 85025; 85027; 85610; 87040; 87641; 93005; 93017; 93306; 93970; 96372; 96374; 96375; 99285; A9502; G0378; J0360; J1644; J1940; J2785; J1815